=== PATIENT | female | born 1990 | race Caucasian/White ===

== ENCOUNTER 2017-05-19 11:45 | Emergency (ER) | payer OTHER ==
[2017-05-19 12:44] VITALS: BP 120/77
--- NOTE | 2017-05-19 13:37 | UC ---
Throat Pain/Nasal Quique HPI - HPI Summary HPI Summary: patient has had increaed sore throat sinus congestion, and now has a fever, getting in one week. - History of Current Complaint Chief Complaint: UCGeneralIllness Stated Complaint: SINUS,SORE THROAT, EARS Time Seen by Provider: 05/19/17 13:22 Hx Obtained From: Patient Hx Last Menstrual Period: 2 WKS AGO ?: No Onset/Duration: Sudden Onset, Lasting Days Severity: Moderate Associated Signs & Symptoms: Positive: Dysphagia, Wheezing, Hoarseness, Sinus Discomfort, Nasal Discharge - Epiglottits Risk Factors Epiglottis Risk Factors: Negative - Allergies/Home Medications Allergies/Adverse Reactions: Allergies Allergy/AdvReac Type Severity Reaction Status Date / Time No Known Allergies Allergy Verified 05/19/17 12:44 Home Medications: Home Medications Pseudoephedrine HCL ER TAB* [Sudafed 12 Hour*] 120 mg PO BID PRN 05/19/17 [ History Confirmed 05/19/17] PMH/Surg Hx/FS Hx/Imm Hx Previously Healthy: Yes - Surgical History Surgical History: None - Family History Known Family History: Negative: Cardiac Disease, Hypertension - Social History Alcohol Use: Occasionally Substance Use Type: None Smoking Status (MU): Current Some Day Smoker Type: Cigarettes Amount Used/How Often: 12 CIGS PER WK Length of Time of Smoking/Using Tobacco: 10 YRS Review of Systems Constitutional: Fever, Chills, Fatigue Skin: Negative Eyes: Negative ENT: Sore Throat, Ear Ache, Nasal Discharge, Sinus Congestion, Sinus Pain/ Tenderness Respiratory: Negative, Cough Cardiovascular: Negative Gastrointestinal: Negative Genitourinary: Negative Motor: Negative Neurovascular: Negative Musculoskeletal: Arthralgia, Myalgia Neurological: Headache Psychological: Negative Is Patient Immunocompromised?: No All Other Systems Reviewed And Are Negative: Yes Physical Exam Triage Information Reviewed: Yes Appearance: Well-Nourished, Ill-Appearing, Pain Distress Vital Signs: Initial Vital Signs Pulse 85 05/19/17 12:38 Resp 16 05/19/17 12:38 BP 120/77 05/19/17 12:38 Pulse Ox 100 05/19/17 12:38 Vital Signs Reviewed: Yes Eye Exam: Normal Eyes: Positive: Conjunctiva Inflamed ENT: Positive: Pharyngeal erythema, TM bulging, TM red, Tonsillar swelling Dental: Positive: Percussion Tenderness @ Neck exam: Normal Neck: Positive: Supple, Nontender, No Lymphadenopathy Respiratory Exam: Normal Respiratory: Positive: No respiratory distress, No accessory muscle use, Wheezing, Inspiration Cardiovascular Exam: Normal Cardiovascular: Positive: RRR, No Murmur, Pulses Normal Abdominal Exam: Normal Abdomen Description: Positive: Nontender, No Organomegaly, Soft Bowel Sounds: Positive: Present Musculoskeletal Exam: Normal Neurological Exam: Normal Psychological Exam: Normal Skin Exam: Normal Throat Pain/Nasal Course/Dx - Course Course Of Treatment: hx obtained, exam performed ,meds reviewed, rapid strep is negative, treated for sinusitis - Differential Dx/Diagnosis Differential Diagnosis/HQI/PQRI: Otitis Media, Pharyngitis, Sinusitis, URI Provider Diagnoses: sinusitis Discharge - Discharge Plan Condition: Stable Disposition: HOME Prescriptions: Amoxicillin PO (*) [Amoxicillin 875 MG (*)] 875 mg PO BID #20 tab predniSONE TAB* [Deltasone TAB*] 40 mg PO DAILY #14 tab Patient Education Materials: Sinusitis (ED) Referrals: Amy Rice MD [Primary Care Provider] - Additional Instructions: 1. take the medication as prescribed. 2. increase your fluid intake and get plenty of rest. 3. FOllow up with any worsening symtpoms
== END 2017-05-19 13:43 | disposition home or self-care (01) ==
LOC: UCCORT 11:45
DX: J32.9 Chronic sinusitis, unspecified (principal); Z72.0 Tobacco use
CPT/HCPCS: 87651; 99212; G0463

== ENCOUNTER 2018-11-05 12:05 | Emergency (ER) | payer OTHER ==
[2018-11-05 13:43] VITALS: BP 109/76
--- NOTE | 2018-11-05 14:05 | UC ---
Throat Pain/Nasal Quique HPI - HPI Summary HPI Summary: Pt c/o nasal congestion, sinus pressure and pain fever, body aches X 5 days. Pt has hx of sinus infections and thinks she may have one - History of Current Complaint Chief Complaint: UCRespiratory Stated Complaint: SINUSES Time Seen by Provider: 11/05/18 14:01 Hx Obtained From: Patient Hx Last Menstrual Period: 10/29/18 ?: No Onset/Duration: Gradual Onset, Lasting Days, Still Present, Worse Since - osnet Severity: Moderate Pain Intensity: 6 Cough: Nonproductive Associated Signs & Symptoms: Positive: Sinus Discomfort - Epiglottits Risk Factors Epiglottis Risk Factors: Sudden Onset - Allergies/Home Medications Allergies/Adverse Reactions: Allergies Allergy/AdvReac Type Severity Reaction Status Date / Time No Known Allergies Allergy Verified 11/05/18 13:34 Home Medications: Home Medications Ashwagandha 1 tab PO DAILY 11/05/18 [History] Calcium Carbonate [Calcium] 1 chw PO DAILY 11/05/18 [History Confirmed 11/05/18] Cholecalciferol (Vitamin D3) [Vitamin D3] 1,000 unit PO DAILY 11/05/18 [History Confirmed 11/05/18] FLUoxetine CAP* [Prozac CAP*] 20 mg PO DAILY 11/05/18 [History Confirmed ] L.acidoph,Paracasei, B.lactis [Probiotic] 1 each PO DAILY 11/05/18 [History Confirmed 11/05/18] Magnesium Oxide [Magnesium] 250 mg PO DAILY 11/05/18 [History Confirmed 11/05/18 ] Milk Thistle 300 mg PO DAILY 11/05/18 [History Confirmed 11/05/18] [place] 3,6,9 Combination No.7 [[place] Dha] 1 chw PO DAILY 11/05/18 [History Confirmed 11/05/18] Vitamin B Complex CAP* [B Complex CAP*] 1 cap PO DAILY 11/05/18 [History Confirmed 11/05/18] PMH/Surg Hx/FS Hx/Imm Hx Previously Healthy: Yes - Surgical History Surgical History: None - Family History Known Family History: Negative: Cardiac Disease, Hypertension - Social History Occupation: Employed Full-time Lives: With Family Alcohol Use: None Substance Use Type: None Smoking Status (MU): Former Smoker Type: Cigarettes Amount Used/How Often: 12 CIGS PER WK Length of Time of Smoking/Using Tobacco: 10 YRS Have You Smoked in the Last Year: Yes When Did the Patient Quit Smoking/Using Tobacco: 2018 Review of Systems All Other Systems Reviewed And Are Negative: Yes Constitutional: Positive: Chills, Fatigue Skin: Positive: Negative Eyes: Positive: Negative ENT: Positive: Nasal Discharge, Sinus Congestion, Sinus Pain/Tenderness Respiratory: Positive: Cough Cardiovascular: Positive: Negative Gastrointestinal: Positive: Negative Genitourinary: Positive: Negative Motor: Positive: Negative Neurovascular: Positive: Negative Musculoskeletal: Positive: Myalgia Neurological: Positive: Headache Psychological: Positive: Negative Is Patient Immunocompromised?: No Physical Exam Triage Information Reviewed: Yes Appearance: Ill-Appearing Vital Signs: Initial Vital Signs Temp 98.7 F 11/05/18 13:38 Pulse 98 11/05/18 13:38 Resp 16 11/05/18 13:38 BP 109/76 11/05/18 13:38 Pulse Ox 99 11/05/18 13:38 Vital Signs Reviewed: Yes Eye Exam: Normal ENT: Positive: Nasal congestion, Sinus tenderness Dental Exam: Normal Neck exam: Normal Respiratory Exam: Normal Cardiovascular Exam: Normal Musculoskeletal Exam: Normal Neurological Exam: Normal Psychological Exam: Normal Skin Exam: Normal Throat Pain/Nasal Course/Dx - Differential Dx/Diagnosis Differential Diagnosis/HQI/PQRI: Influenza, Sinusitis, URI Provider Diagnosis: Sinusitis, acute Discharge - Sign-Out/Discharge Documenting (check all that apply): Patient Departure All imaging exams completed and their final reports reviewed: No Studies - Discharge Plan Condition: Stable Disposition: HOME Prescriptions: Amoxicillin PO (*) [Amoxicillin 875 MG (*)] 875 mg PO Q12H #20 tab Guaifenesin/Pseudoephedrne HCl [Mucinex D ER 600-60 mg Tablet] 1 each PO Q12H # 14 tab.er.12h Patient Education Materials: Sinusitis (ED) Referrals: Maged Warren PA [Primary Care Provider] - If Needed - Billing Disposition and Condition Condition: STABLE Disposition: Home
== END 2018-11-05 14:17 | disposition home or self-care (01) ==
LOC: UCCORT 12:05
DX: J01.90 Acute sinusitis, unspecified (principal); Z87.891 Personal history of nicotine dependence
CPT/HCPCS: 99212; G0463

== ENCOUNTER 2019-04-07 10:09 | Emergency (ER) | payer OTHER ==
[2019-04-07 10:31] VITALS: BP 110/73
[2019-04-07] MEDS ORDERED: Ibuprofen ADULT LIQ* 600 MG/30 ML UDC PO ONE (10:48)
--- NOTE | 2019-04-07 10:52 | UC ---
UC General HPI - HPI Summary HPI Summary: PT IS C/O PAIN ALONG THE BACK OF HER L ANKLE AND NOW SOMETIMES INTO THE ARCH OF HER FOOT WELL. ONSET ABOUT 1 WEEK AGO. SHE DENIES ANY HX OF INJURY. THERE IS NO SWELLING OR BRUISING. SHE IS ON HER FEET AND WALKS OFTEN. - History of Current Complaint Chief Complaint: UCLowerExtremity Stated Complaint: LEFT ANKLE CONCERN Time Seen by Provider: 04/07/19 10:23 Hx Obtained From: Patient Hx Last Menstrual Period: 03/28/19 Onset/Duration: Gradual Onset Timing: Constant Pain Intensity: 7 Character: NON WEIGHT BEARING Aggravating: PUSHING OFF, WALKING. Associated Signs & Symptoms: Negative: Edema, Fever - Allergy/Home Medications Allergies/Adverse Reactions: Allergies Allergy/AdvReac Type Severity Reaction Status Date / Time No Known Allergies Allergy Verified 04/07/19 10:22 PMH/Surg Hx/FS Hx/Imm Hx Psychological History: Depression - Surgical History Surgical History: None - Family History Known Family History: Negative: Cardiac Disease, Hypertension - Social History Lives: With Family Alcohol Use: None Substance Use Type: None Smoking Status (MU): Former Smoker Type: Cigarettes Amount Used/How Often: 12 CIGS PER WK Length of Time of Smoking/Using Tobacco: 10 YRS Have You Smoked in the Last Year: Yes When Did the Patient Quit Smoking/Using Tobacco: 2018 Review of Systems All Other Systems Reviewed And Are Negative: No Constitutional: Negative: Fever Skin: Negative: Rash, Bruising Musculoskeletal: Negative: Decreased ROM, Edema Neurological: Negative: Weakness, Paresthesia, Numbness Physical Exam Triage Information Reviewed: Yes Appearance: Well-Appearing Vital Signs: Initial Vital Signs Temp 98.1 F 04/07/19 10:24 Pulse 80 04/07/19 10:24 Resp 16 04/07/19 10:24 BP 110/73 04/07/19 10:24 Pulse Ox 100 04/07/19 10:24 Vital Signs Reviewed: Yes Cardiovascular: Positive: RRR Musculoskeletal: Positive: Other: - LLE: hip and knee without deformity or tendernes. ankle has no bony tenderness; however, the achilles is tender to palpation which reproduces her pain along with plantar flexion of foot and pushing off with foot. The achilles has no defects plus has + Heart's test and pt able to plantar flex foot(both reproduced pt's pain). Pt notes arch discomfort withstanding, walking and palpation. Rest of foot is non tender. Foot and ankle has full rom. foot has full s/v/m function. Neurological: Positive: Alert Psychological: Positive: Normal Response To Family, Age Appropriate Behavior Skin Exam: Normal Skin: Negative: Rashes Course/Dx - Differential Dx - Multi-Symptom Differential Diagnoses: Other - no concern for fx's or infection. no concern for tendon rupture. exam c/w achilles tendinitis and I think a secondary plantar fascitis. - Diagnoses Provider Diagnosis: Achilles tendinitis, Plantar fasciitis Discharge - Sign-Out/Discharge Documenting (check all that apply): Patient Departure All imaging exams completed and their final reports reviewed: No Studies - Discharge Plan Condition: Stable Disposition: HOME Prescriptions: Naproxen [Naprosyn 500 mg tab] 500 mg PO BID #14 tablet Patient Education Materials: Plantar Fasciitis Exercises (GEN), Plantar Fasciitis (ED), Achilles Tendinitis (ED) Referrals: Maged Warren PA [Primary Care Provider] - If Needed Momo Serrano MD [Medical Doctor] - 7 Days Additional Instructions: ASK TO BE SEEN IN THE [place] OFFICE IF POSSIBLE. WEAR SHOES WITH ARCH SUPPORT AND CUSHION. OBTAIN A SHOE INSERT WITH A RAISED HEEL PAD, INCLUDE ARCH SUPPORT WELL IF POSSIBLE. - Billing Disposition and Condition Condition: STABLE Disposition: Home
== END 2019-04-07 11:01 | disposition home or self-care (01) ==
LOC: UCCORT 10:09
DX: M76.62 Achilles tendinitis, left leg (principal); M72.2 Plantar fascial fibromatosis; Z87.891 Personal history of nicotine dependence
CPT/HCPCS: 99212; A9270-GY; G0463